=== PATIENT | male | born 2000 | race African-American/Black ===

== ENCOUNTER 2024-02-04 09:01 | Emergency (ER) | payer BC, MEDICAID, SELFPAY ==
--- NOTE | 2024-02-04 09:12 | ED.GENADULT ---
HPI - General Adult General Chief complaint: Unspecified Stated complaint: muscle relaxor refill Time Seen by Provider: 02/04/24 09:05 Source: patient Mode of arrival: ambulatory Limitations: no limitations History of Present Illness HPI narrative: This is a 23-year-old male, with history of right shoulder surgery, who presents to the emergency department requesting a refill of his muscle relaxer. The patient states he takes methocarbamol as recommended by his surgeon but has recently run out. He requests refill for use at night. He also request a letter advising avoidance of use during work. 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 He has no other complaints at this. Related Data Allergies Allergy/AdvReac Type Severity Reaction Status Date / Time No Known Allergies Allergy Unverified 10/12/22 14:03 Review of Systems Review of Systems: All systems reviewed & are unremarkable except as noted in HPI and below PMFSH Past Medical History Medical History Right shoulder pain Surgical History Surgical History History of shoulder surgery Social History Social History Smoking status: Current every day smoker Tobacco type: e-cigarettes/vaping Alcohol intake: never Substance use: current Substance use type: marijuana Exam Narrative: GENERAL: Well-developed, well-nourished, and in no acute distress. HEAD: Normocephalic, atraumatic. EYES: PERRLA and EOMI. CHEST: Clear to auscultation. No respiratory distress. No wheezes rales or rhonchi HEART: Regular rate and rhythm. No murmur heard. Normal peripheral pulses. ABDOMEN: Soft, nontender, nondistended, normal active bowel sounds. EXTREMITIES: Muscle spasm is noted over the right trapezius. There are well-healed scars consistent with laparoscopic surgery at the right shoulder. Normal range of motion of all extremities. No edema. SKIN: Warm, dry, no rash. NEURO: Alert and oriented x3. No focal deficit. Moving all 4 limbs spontaneously PSYCH: Normal mood and affect. Course Course Emergency Course: 09:21 - The patient's exam is consistent with previous surgery. He states he has made an appointment with his surgeon the request medications now. [facility] review shows the patient last had fill of methocarbamol in late December. There are no other noted opioid prescriptions or other narcotic prescriptions. I have low suspicion for narcotic abuse. Will provide the patient with a refill recommend follow-up with his surgeon. I discussed the findings and recommendations with the patient. Discussed return and emergency precautions including signs/symptoms of septic arthritis and neurovascular compromise. The patient voiced understanding and agreement with the plan. All questions answered to his satisfaction. Medical Decision Making MDM Narrative Medical decision making narrative: Plan: Pain control, primary care and surgery follow-up Differential Diagnosis Differential Diagnosis: Muscle spasm arthritis, other Discharge Plan Discharge Clinical Impression: Acute pain of right shoulder, Muscle spasm of right shoulder Patient Disposition: Home, Self-Care Condition: Stable Instructions: Antibiotic Form, Shoulder Pain (ED) Additional Instructions: You were seen in the emergency department. Your muscle relaxer has been refilled. I recommend following up with your surgeon. If you develop fevers with severe arm pain and swelling, the arm appears blue/cold, or if you have other emergent concerns for life, limb, or eyesight, return to the emergency department. Patient Language: Austrian Prescriptions: New methocarbamol 750 mg tablet 750 mg PO Q12H Qty: 12 0RF Follow-up/Referrals: PHYSICIAN NOT ON STAFF,NONSTAFF [Primary Care Provider] - 2 Weeks Stand Alone
[2024-02-04 09:16] VITALS: BP 124/76; PULSE 78; RESP 16; TEMP 36.6; O2SAT 100
== END 2024-02-04 09:33 | disposition home or self-care (01) ==
LOC: ANHED 09:32
PROVIDERS: Emergency Provider Preventive Medicine Aerospace Medicine
DX: M25.511 Pain in right shoulder (principal); M62.838 Other muscle spasm; Z76.0 Encounter for issue of repeat prescription; Z98.890 Other specified postprocedural states; F17.290 Nicotine dependence, other tobacco product, uncomplicated
CPT/HCPCS: 99283